=== PATIENT | male | born 1955 | race Caucasian/White ===

== ENCOUNTER → 2016-11-18 | Day surgery (SDC) | payer OTHER ==
[~2016-11-18] VITALS: Ht 190.5 cm; Wt 88.5 kg
[~2016-11-18] MED LIST: ACTOS30 M1 PO; AMARYL4 M1 PO; CALCIUM600 M3 PO; JANUVIA100 M1 PO; JARDIANCE10 M1 PO; METFORMIN HCL1000 M2 PO; MULTIVITAMINS1 EAC8 PO; SIMVASTATIN10 M1 PO
--- NOTE | 2016-11-18 08:18 | Operative Report ---
Operative/Inv Procedure Report Surgery Date: 11/18/16 Name of Procedure: right Extracoporeal shockwave lithotripsy Pre-Operative Diagnosis: right 7mm kidney stone Post-Operative Diagnosis: same Estimated Blood Loss: scant Surgeon/Chief [facility]: NIKITA AKHTAR MD Anesthesia: local monitored anesthesi Complications: none Condition: stable Operative Indication: 7mm stone Operative/Procedure Note Note: Patient was identified in the holding area. Rahul Orifice was identified and consented for a right ESWL. he was given the risks, benefits, and alternatives. All questions were answered. Patient was brought to the operating room and placed on the operating table in the supine position. Timeout was performed. He was optimally positioned to allow for ESWL on the right side. Ultrasound guidance was used as it was not radio-opaque. The shocks were started at power of 1 and ramped up to 20 every few hundred shocks. The 7mm stone responded well to the ESWL. The stone was seen to be changed with dispersion of the stone circumference and change in density. Patient tolerated the procedure well. Findings: 7mm stone well fragmented by US Discharge Disposition: Same Day Admissions
== END ==
LOC: STS 02:06
DX: N20.0 Calculus of kidney (principal); E11.9 Type 2 diabetes mellitus without complications; Z79.84 Long term (current) use of oral hypoglycemic drugs; Z98.84 Bariatric surgery status
CPT/HCPCS: J1885; J2250